=== PATIENT | male | born 1940 | race Caucasian/White ===

== ENCOUNTER 2017-12-13 07:31 | Emergency (ER) | payer OTHER ==
[2017-12-13] MEDS ORDERED: NS 1,000 ML IV ONE (08:02)
--- NOTE | 2017-12-13 08:17 | EDPHY ---
H & P Time Seen by Provider: 12/13/17 08:01 HPI/ROS: Chief complaint. Bleeding from crotch area HPI. Patient is a 77-year-old male on Coumadin who woke up with blood in his depends pad. There is no bleeding now. He thinks he was being for around his scrotum. There is no abdominal pain or rectal pain. No nausea or vomiting. He has had previous bleeding from hemorrhoids and skin tags. No colonoscopy for 12 years secondary to being anticoagulated. Patient is on anticoagulation for atrial fibrillation. He has no pain but does not know where the blood came from. He urinated and there was no blood. ROS Constitutional. no fever/chills, no weakness Eyes. no problems with vision ENT. no sore throat, no nasal drainage Cardiovascular. no chest pain Respiratory. no shortness of breath, no cough Abdominal. Bleeding from crotch area . no problems urinating MS. no calf pain/swelling, no neck/back pain, no joint pain Skin. no rash Lymph. no swollen glands Neuro. no headache, no dizziness, no difficulty walking or with speech Past Medical/Surgical History: Chronic back pain, anxiety, DJD, atrial fibrillation, hypertension, previous sepsis, hemorrhoids Social History: , non smoker, no alcohol Smoking Status: Former smoker Physical Exam: General Appearance: Alert developed male no distress vital signs are stable Eyes: Pupils equal and round no pallor or injection. ENT, Mouth: Mucous membranes are moist. Respiratory: There are no retractions, lungs are clear to auscultation. Cardiovascular: Regular rate and rhythm. Gastrointestinal: Abdomen is soft and nontender, no masses, bowel sounds normal. Uncircumcised penis. Testes normal. Skin tags present in perineal area but no bleeding. Non thrombosed hemorrhoids present the do not appear to be bleeding. Rectal exam shows brown stool. Neurological: Awake and alert, sensory and motor exams grossly normal. Skin: Warm and dry, no rashes. Musculoskeletal: Neck is supple nontender. Extremities symmetrical, full range of motion. Psychiatric: Patient is oriented X 3, there is no agitation. Constitutional: Initial Vital Signs Temperature (C) 36.7 C 12/13/17 07:35 Heart Rate 78 12/13/17 07:35 Respiratory Rate 18 12/13/17 07:35 Blood Pressure 150/89 H 12/13/17 07:35 O2 Sat (%) 96 12/13/17 07:35 O2 Delivery Mode Room Air Allergies/Adverse Reactions: Penicillins Allergy (Unknown, Verified 12/13/17 07:34) Home Medications: Medication Instructions Recorded Aspirin [Aspirin 81mg (*)] 81 mg PO HS 03/01/15 Cholecalciferol Vit D3 [Vitamin D3 2,000 units PO DAILY 01/21/16 (*)] Acetaminophen [Tylenol ES 500 mg 500 mg PO Q6 PRN 03/12/16 (*)] Allopurinol [Allopurinol 100 MG 100 mg PO DAILY 03/12/16 (*)] Metoprolol Tartrate [Lopressor 50 50 mg PO BID 03/12/16 mg (*)] Potassium Cl [Klor-Con 10 meq (RX)] 10 meq PO DAILY 03/12/16 Simvastatin 40 mg PO HS 03/12/16 Torsemide [Demadex] 20 mg PO DAILY 03/12/16 Warfarin Sodium [Coumadin 5MG (*)] 5 mg PO DAILY16 03/12/16 Colchicine [Colchicine (*)] 0.6 mg PO DAILY #0 ea 03/17/16 Aldactone 12/13/17 Medical Decision Making Procedures: IV normal saline ED Course/Re-evaluation: Re-evaluation at 9:40 a.m. A.m.. Patient is stable. No further bleeding. No pain. The patient, his , and I discussed laboratory evaluation, treatment plan including criteria for return and importance of follow-up and further evaluation. We discussed skipping 1 dose of Coumadin today as his INR is high. The patient and his expressed understanding and agreement Differential Diagnosis: I considered bleeding from urine, skin tags, hemorrhoids, intestines. The source of his bleeding is unclear. No further bleeding noted. - Data Points Laboratory Results: Laboratory Results 12/13/17 08:35 12/13/17 08:35 12/13/17 12/13/17 12/13/17 08:35 08:35 08:35 WBC RBC Hgb Hct MCV MCH MCHC RDW Plt Count MPV Neut % (Auto) Lymph % (Auto) [place] % (Auto) Eos % (Auto) Baso % (Auto) Nucleat RBC Rel Count Absolute Neuts (auto) Absolute Lymphs (auto) Absolute Monos (auto) Absolute Eos (auto) Absolute Basos (auto) Absolute Nucleated RBC Immature Gran % Immature Gran # PT 36.3 SEC H SEC (12.0-15.0) INR 3.69 H (0.83-1.16) APTT 46.2 SEC H SEC (23.0-38.0) Sodium 139 mEq/L mEq/L (135-145) Potassium 4.3 mEq/L mEq/L (3.5-5.2) Chloride 102 mEq/L mEq/L (97-110) Carbon Dioxide 24 mEq/l mEq/l (22-31) Anion Gap 13 mEq/L mEq/L (8-16) BUN 16 mg/dL mg/dL (7-23) Creatinine 0.8 mg/dL mg/dL (0.7-1.3) Estimated GFR > 60 Glucose 102 mg/dL H mg/dL (70-100) Calcium 9.3 mg/dL mg/dL (8.5-10.4) Urine Color YELLOW Urine Appearance CLEAR Urine pH 7.0 (5.0-7.5) Ur Specific [place] 1.019 (1.002-1.030) Urine Protein NEGATIVE (NEGATIVE) Urine Ketones NEGATIVE (NEGATIVE) Urine Blood NEGATIVE (NEGATIVE) Urine Nitrate NEGATIVE (NEGATIVE) Urine Bilirubin NEGATIVE (NEGATIVE) Urine Urobilinogen 4.0 EU H EU (0.2-1.0) Ur Leukocyte Esterase NEGATIVE (NEGATIVE) Urine RBC 1-3 /hpf /hpf (0-3) Urine WBC NONE SEEN /hpf /hpf (0-3) Ur Epithelial Cells TRACE /lpf /lpf (NONE-1+) Urine Mucus TRACE /lpf /lpf (NONE-1+) Urine Glucose NEGATIVE (NEGATIVE) Stool Occult Bld Scrn 12/13/17 12/13/17 08:35 08:10 WBC 4.81 10^3/uL 10^3/uL (3.80-9.50) RBC 3.96 10^6/uL L 10^6/uL (4.40-6.38) Hgb 13.6 g/dL L g/dL (13.7-17.5) Hct 39.2 % L % (40.0-51.0) MCV 99.0 fL fL (81.5-99.8) MCH 34.3 pg H pg (27.9-34.1) MCHC 34.7 g/dL g/dL (32.4-36.7) RDW 13.5 % % (11.5-15.2) Plt Count 117 10^3/uL L 10^3/uL (150-400) MPV 10.1 fL fL (8.7-11.7) Neut % (Auto) 62.8 % % (39.3-74.2) Lymph % (Auto) 20.2 % % (15.0-45.0) [place] % (Auto) 13.3 % H % (4.5-13.0) Eos % (Auto) 2.5 % % (0.6-7.6) Baso % (Auto) 0.8 % % (0.3-1.7) Nucleat RBC Rel Count 0.0 % % (0.0-0.2) Absolute Neuts (auto) 3.02 10^3/uL 10^3/uL (1.70-6.50) Absolute Lymphs (auto) 0.97 10^3/uL L 10^3/uL (1.00-3.00) Absolute Monos (auto) 0.64 10^3/uL 10^3/uL (0.30-0.80) Absolute Eos (auto) 0.12 10^3/uL 10^3/uL (0.03-0.40) Absolute Basos (auto) 0.04 10^3/uL 10^3/uL (0.02-0.10) Absolute Nucleated RBC 0.00 10^3/uL 10^3/uL (0-0.01) Immature Gran % 0.4 % % (0.0-1.1) Immature Gran # 0.02 10^3/uL 10^3/uL (0.00-0.10) PT INR APTT Sodium Potassium Chloride Carbon Dioxide Anion Gap BUN Creatinine Estimated GFR Glucose Calcium Urine Color Urine Appearance Urine pH Ur Specific [place] Urine Protein Urine Ketones Urine Blood Urine Nitrate Urine Bilirubin Urine Urobilinogen Ur Leukocyte Esterase Urine RBC Urine WBC Ur Epithelial Cells Urine Mucus Urine Glucose Stool Occult Bld Scrn NEGATIVE (NEGATIVE) Medications Given: Discontinued Medications Sodium Chloride (Ns) 1,000 mls @ 0 mls/hr IV EDNOW ONE; Wide Open PRN Reason: Protocol Stop: 12/13/17 08:03 Last Admin: 12/13/17 08:38 Dose: 1,000 mls Departure - Departure Disposition: Home, Routine, Self-Care Clinical Impression: Rectal bleeding Condition: Good Instructions: Rectal Bleeding (ED) Additional Instructions: The source of your bleeding today is not clear. I do not see evidence of blood in your urine or stool. Your Coumadin level is slightly high day so skip 1 dose of Coumadin tonight. May resume regular Coumadin dosage tomorrow. Return for further bleeding. Referrals: Ara Braxton MD [Primary Care Provider] - 2-3 days, if not improved
[2017-12-13 08:45] LABS: PLATELET COUNT 117 10^3/uL (150-400)
[2017-12-13 08:52] LABS: INR 3.69 (0.83-1.16); PROTIME(PATIENT) 36.3 SEC (12.0-15.0)
[2017-12-13 09:53] VITALS: BP 134/87
== END 2017-12-13 09:57 | disposition home or self-care (01) ==
DX: K62.5 Hemorrhage of anus and rectum (principal); I10 Essential (primary) hypertension; E86.9 Volume depletion, unspecified; Z79.01 Long term (current) use of anticoagulants; Z79.82 Long term (current) use of aspirin; Z87.891 Personal history of nicotine dependence

== ENCOUNTER 2018-03-26 07:44 | Emergency (ER) | payer OTHER ==
--- NOTE | 2018-03-26 08:31 | EDPHY ---
H & P Stated Complaint: left hand blood blister starting Wed, on Coumadin Time Seen by Provider: 03/26/18 07:54 HPI/ROS: CHIEF COMPLAINT: Blister on left hand HISTORY OF PRESENT ILLNESS: 78-year-old male on Coumadin presents with a blister on his left hand. Onset of bruising of the left hand 4 days ago. Gradual onset of a blood blister on the left hand over the past couple of days. No known trauma. No pain, redness or fever. - Personal History Tetanus Vaccine Date: 2006 - Medical/Surgical History Hx Asthma: Yes Hx Chronic Respiratory Disease: No Hx Diabetes: No Hx Cardiac Disease: Yes Hx Renal Disease: No Hx Cirrhosis: No Hx Alcoholism: No Hx HIV/AIDS: No Hx Splenectomy or Spleen Trauma: No Other PMH: cabg , coumadin adn aortic valve.. chronic back pain . tonsilectomy, ANXIETY. cataract,DJD,AFIB,pneumonia,hypertension, SEPSIS 05/13, SKIN DEBRIDEMENT/GRAFT L LEG 08/12 - Social History Smoking Status: Former smoker - Physical Exam Exam: Alert and oriented, pleasant Extremities: Left hand-1 cm blood blister on the dorsal aspect of the left hand between the 1st and 2nd metacarpals with surrounding ecchymosis, no warmth or tenderness Skin: Intact Neuro: Motor and sensory intact Vascular: Capillary refill brisk distally Constitutional: Initial Vital Signs Temperature (C) 36.8 C 03/26/18 07:50 Heart Rate 86 03/26/18 07:50 Respiratory Rate 18 03/26/18 07:50 Blood Pressure 155/87 H 03/26/18 07:50 O2 Sat (%) 95 03/26/18 07:50 O2 Delivery Mode Room Air Allergies/Adverse Reactions: Penicillins Allergy (Unknown, Verified 03/26/18 07:48) Home Medications: Medication Instructions Recorded Aspirin [Aspirin 81mg (*)] 81 mg PO HS 03/01/15 Cholecalciferol Vit D3 [Vitamin D3 2,000 units PO DAILY 01/21/16 (*)] Acetaminophen [Tylenol ES 500 mg 500 mg PO Q6 PRN 03/12/16 (*)] Allopurinol [Allopurinol 100 MG 100 mg PO DAILY 03/12/16 (*)] Metoprolol Tartrate [Lopressor 50 50 mg PO BID 03/12/16 mg (*)] Potassium Cl [Klor-Con 10 meq (RX)] 10 meq PO DAILY 03/12/16 Simvastatin 40 mg PO HS 03/12/16 Torsemide [Demadex] 20 mg PO DAILY 03/12/16 Warfarin Sodium [Coumadin 5MG (*)] 5 mg PO DAILY16 03/12/16 Colchicine [Colchicine (*)] 0.6 mg PO DAILY #0 ea 03/17/16 Aldactone 12/13/17 Medical Decision Making ED Course/Re-evaluation: Blister instructions given. Blister left intact. INR in adequate range. No evidence of infection. - Data Points Laboratory Results: 03/26/18 08:30 PT 30.7 SEC H SEC (12.0-15.0) INR 2.96 H (0.83-1.16) Departure - Departure Disposition: Home, Routine, Self-Care Clinical Impression: Blood blister Condition: Good Instructions: Hematoma (ED) Additional Instructions: Keep the blister covered. If the blister breaks open, wash the area with soap and water 3 times daily and apply antibiotic ointment after washing. Return for any concerns, such as signs of infection including pain, redness, fever. Referrals: Ara Braxton MD [Primary Care Provider] - As per Instructions
[2018-03-26 08:46] LABS: INR 2.96 (0.83-1.16); PROTIME(PATIENT) 30.7 SEC (12.0-15.0)
[2018-03-26 08:55] VITALS: BP 148/87
== END 2018-03-26 08:55 | disposition home or self-care (01) ==
DX: S60.522A Blister (nonthermal) of left hand, initial encounter (principal); J45.909 Unspecified asthma, uncomplicated; I10 Essential (primary) hypertension; Z79.01 Long term (current) use of anticoagulants; Z87.891 Personal history of nicotine dependence; Z79.82 Long term (current) use of aspirin; X58.XXXA Exposure to other specified factors, initial encounter